=== PATIENT | female | born 1945 | race Caucasian/White ===

== ENCOUNTER → 2020-10-24 | Outpatient (CLI) | payer BC ==
[~2020-10-24] MED LIST: CALCIUM 600 +1 EAC7 PO; FLAGYL500 MG PO; LEVAQUIN500 MG PO; LEVOTHYROXINE75 MCG PO; NORVASC 5 MG TAB5 MG PO; PRAVACHOL40 MG PO; PROBIOTIC 5 BI1 EACH PO; VITAMIN B-121000 MCG PO; ZOFRAN4 MG PO
== END ==
LOC: EXRD 10:57
DX: M54.5 Low back pain (principal); M47.816 Spondylosis without myelopathy or radiculopathy, lumbar region
CPT/HCPCS: 72100; 72220

== ENCOUNTER → 2021-08-25 | Outpatient (CLI) | payer BC | LOC: HEART 5 09:46 | DX: R07.9 Chest pain, unspecified (principal); I08.1 Rheumatic disorders of both mitral and tricuspid valves | CPT/HCPCS: 93306 ==

== ENCOUNTER → 2021-09-24 | Outpatient (CLI) | payer MEDICARE | LOC: HEART 5 08:59 | DX: I20.9 Angina pectoris, unspecified (principal); R94.39 Abnormal result of other cardiovascular function study | CPT/HCPCS: 78452; A9502; J2785 ==